=== PATIENT | male | born 1960 | race Caucasian/White ===

== ENCOUNTER → 2019-08-17 | Outpatient (CLI) | payer OTHER ==
[2015-09-06 07:07] VITALS: BP 135/84
[~2019-08-17] MED LIST: ACET500T68 PO; ASPI-482 PO; CRESTOR40 MG PO; ESOM40CA PO; FURO80TA72 PO; IBUP-1027 PO; LEVO125T PO; LISI1TAB20 PO; RANI300T3 PO
--- NOTE | 2019-08-17 09:52 | RAD ---
EXAM: Right knee, 2 views; lumbar spine, 2 views. HISTORY: Pain. COMPARISON: None. FINDINGS: Right knee: 2 views of the right knee are obtained. There is medial compartment joint space narrowing and minimal subchondral sclerosis. There is also minimal spurring along the superior patella. There is no fracture, dislocation or subluxation. Lumbar spine: 2 views of the lumbar spine are obtained. There is no listhesis. The vertebral bodies are normal in height. There is degenerative endplate remodeling primarily at the mid lower lumbar levels. There is disc space narrowing primarily at L5-S1. There is multilevel facet arthropathy. IMPRESSION: 1. Multilevel degenerative change throughout the lumbar spine. 2. Mild medial and minimal patellofemoral compartment osteoarthritis of the right knee. Electronically signed by: Shari Layne MD (08/17/2019 9:49 AM) [id number]
== END | disposition home or self-care (01) ==
LOC: RAD 09:01
PROVIDERS: ATTEND Surgery
DX: M48.07 Spinal stenosis, lumbosacral region (principal); M17.11 Unilateral primary osteoarthritis, right knee; M51.37 Other intervertebral disc degeneration, lumbosacral region
CPT/HCPCS: 72100; 73560

== ENCOUNTER → 2020-05-14 | Outpatient (CLI) | payer OTHER ==
[2020-03-20 18:00] VITALS: BP 120/74
[~2020-05-14] MED LIST changes: +ASCO500C PO; +ATOR20TA58 PO; +FURO40TA4 PO; +INSU100V5 IJ; +LEVO200T5 PO; +LINE600T12 PO; +LOSA100T14 PO; +MICA100V3 IV; +MULT-735 PO; +NAPR-634 PO; +NPH,100V SQ; +OMEP40CA45 PO; +PIPE3.377 IV
--- NOTE | 2020-05-14 17:37 | RAD ---
CT head without contrast. Maxillofacial CT without contrast. HISTORY: Headache. Fever. Night sweats. CT head findings: No intracranial hemorrhage, mass, hydrocephalus, extra-axial fluid collections or infarction. No acute ischemic change. There may be bilateral ocular proptosis and prominence of the orbital fat can be observed with obesity or the setting of thyroid orbitopathy. Mild bilateral mastoid fluid. Bones unremarkable. IMPRESSION: 1. No acute intracranial CT abnormality. 2. Bilateral mastoid fluid, this could be sterile fluid, related to eustachian tube dysfunction, or sequela of otomastoiditis. Maxillofacial CT findings: No fracture of the facial bones. Small chronic appearing bone fragments along the maxillary nasal spine anteriorly. Paranasal sinuses well aerated. Maxilla, mandible and bony orbits intact. No fluid or opacification of the peroneal sinuses. Mild bilateral ocular proptosis and prominence of intraorbital fat. Chronically missing teeth. There is a small remnant of a right maxillary canine dental root and of the residual bilateral maxillary molars remaining. IMPRESSION: Facial bones intact. Ocular proptosis with prominence of orbital fat could be related to obesity or can be observed with thyroid orbitopathy. Exposure: One or more of the following individualized dose reduction techniques were utilized for this examination: 1. Automated exposure control 2. Adjustment of the mA and/or kV according to patient size 3. Use of iterative reconstruction technique Electronically signed by: Tom Ferrer MD (05/14/2020 5:34 PM) [facility]
== END | disposition home or self-care (01) ==
LOC: CT 17:10
DX: H05.223 Edema of bilateral orbit (principal); E07.89 Other specified disorders of thyroid; K08.409 Partial loss of teeth, unspecified cause, unspecified class
CPT/HCPCS: 70450; 70486